=== PATIENT | female | born 1980 | race Hispanic/Latino ===

== ENCOUNTER 2019-07-19 17:45 | Emergency (ER) | payer SELFPAY ==
[2019-07-19] MEDS ORDERED: METHYLPREDNISOLONE SOD SUCC 40MG/ML 1ML ONE (18:33)
[2019-07-19] MEDS ORDERED: IPRATROPIUM/ALBUTEROL SULFATE 3 ML SOLUTION IH ONE (18:59)
== END 2019-07-19 19:15 | disposition home or self-care (01) ==
LOC: EDH 17:45
DX: J10.1 Influenza due to other identified influenza virus with other respiratory manifestations (principal); Z88.0 Allergy status to penicillin; Z88.6 Allergy status to analgesic agent
CPT/HCPCS: 71046; 87804 ×2; 94640; 96372; 99285; J2920